=== PATIENT | male | born 1995 | race Two or more races ===

== ENCOUNTER 2019-03-18 09:34 | Emergency (ER) | payer MEDICAID ==
[~2019-03-18] VITALS: Ht 160 cm; Wt 83.0 kg
[2019-03-18] MEDS ORDERED: IBUPROFEN 600MG TABLET PO ONE (10:45)
[2019-03-18 12:28] VITALS: BP 121/80
== END 2019-03-18 12:33 | disposition home or self-care (01) ==
LOC: ER 09:34
DX: R07.89 Other chest pain (principal); M54.6 Pain in thoracic spine; V49.49XA Driver injured in collision with other motor vehicles in traffic accident, initial encounter; Y93.89 Activity, other specified; Y92.89 Other specified places as the place of occurrence of the external cause; Y99.8 Other external cause status; F12.10 Cannabis abuse, uncomplicated
CPT/HCPCS: 71045; 93005; 99283

== ENCOUNTER 2019-03-24 23:17 | Emergency (ER) | payer MEDICAID ==
[~2019-03-24] VITALS: Ht 152.4 cm; Wt 84.0 kg
[2019-03-25 01:44] LABS: CHLORIDE 105 mEq/L (98-107)
[2019-03-25 01:47] LABS: ETHANOL BLOOD < 10 mg/dL
[2019-03-25 02:42] LABS: *AMPHETAMINES SCREEN URINE NEGATIVE (NEGATIVE); *BARBITURATES SCREEN URINE NEGATIVE (NEGATIVE); *BENZODIAZEPINES SCREEN URINE PRESUMTIVE POSITIVE (NEGATIVE)
[2019-03-25 02:43] LABS: *COCAINE SCREEN URINE NEGATIVE (NEGATIVE); CANNABINOID URINE SCREEN PRESUMTIVE POSITIVE (NEGATIVE); METHADONE URINE SCREEN NEGATIVE (NEGATIVE); OPIATES URINE SCREEN NEGATIVE (NEGATIVE); PHENCYCLIDINE URINE SCREEN NEGATIVE (NEGATIVE)
[2019-03-25 03:18] VITALS: BP 100/51
== END 2019-03-25 03:20 | disposition home or self-care (01) ==
LOC: ER 23:17
DX: F41.9 Anxiety disorder, unspecified (principal); R06.02 Shortness of breath; R00.2 Palpitations; Y08.89XA Assault by other specified means, initial encounter; Y93.89 Activity, other specified; Y92.89 Other specified places as the place of occurrence of the external cause; Y99.8 Other external cause status; F12.10 Cannabis abuse, uncomplicated
CPT/HCPCS: 36415; 80305; 80320; 84443; 93005; 99284; G0480

== ENCOUNTER 2019-06-18 09:03 | Emergency (ER) | payer MEDICAID ==
[~2019-06-18] VITALS: Ht 160 cm; Wt 71.0 kg
[2019-06-18] MEDS ORDERED: KETOROLAC 30MG/ML VIAL IM ONE (10:00)
[2019-06-18 10:04] VITALS: BP 147/97
== END 2019-06-18 10:38 | disposition home or self-care (01) ==
LOC: ER 09:22
DX: M54.5 Low back pain (principal); R03.0 Elevated blood-pressure reading, without diagnosis of hypertension
CPT/HCPCS: 96372; 99283; J1885